=== PATIENT | male | born 1955 | race Caucasian/White ===

== ENCOUNTER 2020-04-04 09:53 | Inpatient (IN) | payer BC, OTHER ==
[~2020-04-04] VITALS: Ht 167.6 cm; Wt 76.2 kg
[2020-04-04] VITALS (12 sets, daily range): BP systolic 115–135; BP diastolic 62–84
[2020-04-04 10:18] LABS: ABSOLUTE NEUTROPHILS 2.5 thou/uL (1.4-8.2); BASOPHILS 0.3 % (0.0-2.0); EOSINOPHILS 1.7 % (0.0-3.0); HEMATOCRIT 46.9 % (42.0-52.0); HEMOGLOBIN 15.6 gm/dL (14.0-18.0); LYMPHOCYTES 41.3 % (24.0-44.0); MCH 30.4 pg (26.0-34.0); MCHC 33.2 g/dL (28.0-37.0); MCV 91.5 fL (80.0-100.0); MONOCYTES 14.2 % (1.0-8.0); PLATELET COUNT 239 thou/uL (150-400); POLYS 42.5 % (36.0-66.0); RBC 5.13 mil/uL (4.50-6.00); RDW 12.8 % (10.5-14.5)
[2020-04-04 10:22] LABS: ANION GAP 14 mmol/L (7-16); BUN 15 mg/dL (7-18); CALCIUM 9.3 mg/dL (8.5-10.1); CHLORIDE 101 mmol/L (98-107); CO2 23 mmol/L (21-32); CREATININE 1.6 mg/dL (0.7-1.3); GLUCOSE 119 mg/dL (74-106); POTASSIUM 3.3 mmol/L (3.5-5.1); SODIUM 138 mmol/L (136-145)
[2020-04-04 10:33] LABS: ALBUMIN 3.7 g/dL (3.4-5.0); DIRECT BILIRUBIN < 0.1 mg/dL (<0.1-0.2); SGOT 21 U/L (15-37); SGPT 34 U/L (30-65); TOTAL BILIRUBIN 0.4 mg/dL (0.2-1.0); TOTAL PROTEIN 6.6 g/dL (6.4-8.2); TROPONIN-I <0.06 ng/mL (<0.06)
--- NOTE | 2020-04-04 12:19 | 2DMMODE ---
[facility] Shane [employer] [facility] [place] [address] 2 D/M-MODE ECHOCARDIOGRAM Name: JUDITH TOVAR Room #: 160-1 ADM IN M.R.#: [id number] Admission: 04/04/20 Attend Phys: Dequan José MD Discharge: Date of : 59 Report #: [id number] THIS REPORT FOR: cc: FAM - Family physician unknown FAM - Family physician unknown Dante Marcial MD [facility] ~ APPROVED REPORT Study performed: 04/04/2020 11:33:56 EXAM: Comprehensive 2D, Doppler, and color-flow Echocardiogram Patient Location: CV Holding Status: routine BSA: 1.81 HR: 79 bpm BP: 127/62 mmHg Rhythm: RBBB Other Information Study Quality: Adequate Technically limited study due to pectus, flat on back. Indications STEMI s/p cardiac stents. Echo Enhancing Agent Indication: Endocardial border delineation Agent(s) / Amount(s) Used: Optison 4 cc 2D Dimensions RVDd: 34.58 mm IVSd: 10.55 (7-11mm) LVOT Diam: 19.93 (18-24mm) LVDd: 46.91 mm PWd: 8.85 (7-11mm) LVDs: 34.14 (25-40mm) Left Atrium: 31.46 (27-40mm) Aortic Root: 24.74 mm Volumes Left Atrial Volume (Systole) Single Plane 4CH: 33.20 mL Single Plane 2CH: 42.87 mL LA ESV Index: 24.00 mL/m2 [facility] [address] [place] [address] 2 D/M-MODE ECHOCARDIOGRAM Name: JUDITH TOVAR Room #: 160-1 ADM IN M.R.#: [id number] Admission: 04/04/20 Attend Phys: Dequna José, Discharge: Date of : 59 Report #: [id number] Aortic Valve AoV Peak Fabian.: 1.21 m/s AO Peak Gr.: 5.90 mmHg LVOT Max P.82 mmHg LVOT Max V: 0.98 m/s YEVGENIY Vmax: 2.51 cm2 Mitral Valve E/A Ratio: 0.8 MV Decel. Time: 181.89 ms MV E Max Fabian.: 0.53 m/s MV A Fabian.: 0.68 m/s MV PHT: 52.75 ms IVRT: 103.81 ms Pulmonary Valve PV Peak Fabian.: 0.77 m/s PV Peak Gr.: 2.40 mmHg Tricuspid Valve RAP Estimate: 5.00 mmHg Left Ventricle The left ventricle is normal size. There is normal left ventricular wall thickness. Left ventricular systolic function is normal. LVEF is 50-55%. Mild diastolic dysfunction is present (impaired relaxation pattern). Right Ventricle The right ventricle is normal size. The right ventricular systolic function is normal. Atria The left atrium size is normal. The right atrium size is normal. Aortic Valve The aortic valve is normal in structure. No aortic regurgitation is present. There is no aortic valvular stenosis. Mitral Valve The mitral valve is normal in structure. There is no mitral valve regurgitation noted. No evidence of mitral valve stenosis. Tricuspid Valve The tricuspid valve is normal in structure. There is no tricuspid valve regurgitation noted. Unable to assess PA pressure. [facility] [address] [place] [address] 2 D/M-MODE ECHOCARDIOGRAM Name: JUDITH TOVAR Room #: [facility] ADM IN M.R.#: [id number] Admission: 04/04/20 Attend Phys: Dequan José, Discharge: Date of : 59 Report #: [id number] Pulmonic Valve Pulmonic valve is not well visualized. Trace pulmonic regurgitation. Great Vessels The aortic root is normal in size. Ascending aorta is not well visualized. IVC is normal in size and collapses >50% with inspiration. Pericardium There is no pericardial effusion. <Conclusion> Normal left ventricular size/wall thickness Ejection fraction 55%, mild distal anteroapical hypokinesis Grade 1 diastolic dysfunction Normal right ventricular size/function Normal atrial size Color-flow Doppler study was performed of the aortic/mitral/tricuspid/pulmonary valve Normal aortic/mitral valve structure and function No evidence of tricuspid valve insufficiency No pericardial effusion <ELECTRONICALLY SIGNED> By: Dante Marcial MD, FACC 04/04/209 18 18 Dante Marcial MD, [facility] /INF
--- NOTE | 2020-04-04 13:12 | NUR ---
ASSUMED PT CARE FROM NURSE ASSESSOR. PT ALERT AND ORIENTED X3. PT DENIES PAIN AT THIS TIME. ADMISSION ASSESSMENT COMPLETE. VSS. WILL CONTINUE TO MONITOR.
--- NOTE | 2020-04-04 14:33 | CATHLAB ---
[facility] [place] [address] INVASIVE PROCEDURE REPORT Name: JUDITH TOVAR Room #: 214-P ADM IN M.R.#: [id number] Admission: 04/04/20 Attend Phys: Dequan José MD Discharge: Date of : 59 Report #: [id number] THIS REPORT FOR: cc: FAM - Family physician unknown FAM - Family physician unknown Chapin Ross MD ~ APPROVED REPORT Study performed: 04/04/2020 09:54:53 Patient Details Patient Status: ED Room #: The patient is a 64 year-old male Event Personnel Chapin Ross Window Repairer, Marilu Meyers RN RN, Zaida Carey RTR, Hugh Lara Roberta Monitor, Antwon Temple RN senior quality manager Performed Art Access - R femoral artery* Left Heart Cath w/or w/o Coronaries [id number] [facility] CHA Place w/wo Plasty Single LAD 388297 Hemostasis w/ Mynx 08620 Initial Mod Sed Same Phys/QHP Gr5y 308100 08414 Mod Sed Same Phys/QHP Ea 699829 Indication STEMI (>0 to less than or equal to 6 hours), Dyspnea, Chest pain Risk Factors Hypercholesterolemia Procedure Narrative The Right Groin^ was infiltrated with 1% Lidocaine subcutaneous anesthesia. A PINNACLE 6FR Sheath #[id number] sheath was inserted into the RFA^. Coronary angiography was performed using coronary diagnostic catheters. The right coronary system was accessed and visualized with a JR4 catheter. The left coronary system was accessed and visualized with a XB 3.5 catheter. The left ventricle was accessed and visualized with a ANGLE PIG catheter. The patient tolerated the procedure well and there were no complications associated with the procedure. There was no hematoma. Intraoperative Conscious Sedation [facility] [address] [place] [address] INVASIVE PROCEDURE REPORT Name: JUDITH TOVAR Room #: 214-P [facility] IN .R.#: [id number] Admission: 04/04/20 Attend Phys: Dequan José, Discharge: Date of : 59 Report #: [id number] Sedation start time: 1013 Case end Time: 1115 Fentanyl 50 mcg Versed 1 mg Fluoro Time: 13.9 minutes Dose: 2265 mGy Contrast Type and Amount: Visipaque 385 ml Coronary Angiography The patient's coronary anatomy is right dominant. Diagnostic Cath Left Main The left main artery is a large-caliber vessel, patent with no flow-limiting lesions. LAD The LAD is a moderate-sized caliber vessel with a total occlusion in the proximal segment. There is a severe occlusion in the midsegment, at the bifurcation of the second diagonal artery. Diagonal 1 This is a small to moderate-sized caliber vessel with a borderline stenosis at the ostium, recommend medical therapy. Diagonal 2 There is a moderate-sized caliber vessel, with no flow-limiting lesions. Circumflex There is mild disease in the proximal segment. OM1 This is a small to moderate-sized caliber vessel, with a mild stenosis at the ostium. OM2 This is a moderate-sized caliber vessel, patent with no flow-limiting lesions. Right Coronary The RCA is a moderate-sized caliber vessel, dominant. There is a mild to moderate obstruction in the proximal segment, 30 to 40%. R PDA This is a moderate-sized caliber vessel, patent with no flow-limiting lesions. RPLV This is a moderate-sized caliber vessel, patent with no flow-limiting lesions. Left Ventriculography The left ventricle is normal in size with Diminished contractility. The left ventricular ejection fraction is estimated to be 45-50%. There is mild hypokinesis of the distal anteroapical segment. IVUS Intravascular Ultrasound was performed on the mid left anterior descending artery segment vessel. Fractional Flow [place] was performed on the 80 vessel. [facility] [address] [address] INVASIVE PROCEDURE REPORT Name: JUDITH TOVAR Room #: 214-P [facility] IN M.R.#: [id number] Admission: 04/04/20 Attend Phys: Dequan José, Discharge: Date of : 59 Report #: [id number] IVUS Findings TREK FL RX 2.5 X 8 #[id number] Hemodynamics The aortic pressure is 129/72 mmHg with a mean of 95 mmHg. The left ventricular pressure is 128/5 mmHg with a mean of mmHg. The left ventricular end diastolic pressure is 23 mmHg. PCI Technique Lesion Percutaneous coronary intervention was performed on the proximal left anterior descending artery segment. The lesion stenosis prior to intervention was 100% with PRINCESS 0 flow. A VISTA 6FR XB 3.5 #[id number] Guide Catheter was used to engage the ostium. A Luge Wire .014 x 182CM #[id number] Interventional Guidewire was used to cross the lesion. BALLOON DILATION A Balloon catheter Euphora RX 2.5 x 12 #[id number] was inserted and inflated up to 8.00atm for 11seconds. STENT DEPLOYMENT A stent RESOLUTE YAHAIRA RX 2.75 X15 #[id number] was inserted and inflated up to 12.00atm for 25seconds. POST STENT DEPLOYMENT BALLOON DILATION A Balloon catheter TREK NC RX 3.0 X 12 #[id number] was inserted and inflated up to 16.00atm for 19seconds. Final angiography reveals 0 % stenosis with PRINCESS 3 flow. PCI Technique Lesion Percutaneous coronary intervention was performed on the mid left anterior descending artery segment. The lesion stenosis prior to intervention was 80% with PRINCESS flow. BALLOON DILATION A Balloon catheter TREK NC RX 2.5 X 8 #[id number] was inserted and inflated up to 12atm for 21seconds. STENT DEPLOYMENT A stent TREK NC RX 2.75 X 12 #[id number] was inserted and inflated up to 12atm for 18seconds. POST STENT DEPLOYMENT BALLOON DILATION A Balloon catheter TREK NC RX 2.75 X 12 #[id number] was inserted and [facility] [address] [place] [address] INVASIVE PROCEDURE REPORT Name: JUDITH TOVAR Room #: 214-P ADM IN M.R.#: [id number] Admission: 04/04/20 Attend Phys: Dequan José, Discharge: Date of : 59 Report #: [id number] inflated up to 16atm for 21seconds. Final angiography reveals 0 % stenosis with PRINCESS 3 flow. Conclusion 1. Successful insertion of a drug-eluting stent into the total occlusion in the proximal LAD segment. 2. Successful insertion of a drug-eluting stent into the severe stenosis in the mid segment of the LAD. 3. There is a borderline stenosis at the ostium of the first diagonal artery, recommend medical therapy. 4. There is a mild to moderate occlusion in the proximal segment of the dominant RCA. 5. There is mild LV dysfunction. 6. Recommend dual antiplatelet therapy and aggressive risk factor management. <ELECTRONICALLY SIGNED> By: Chapin Ross MD 04/04/20 1433 143 143 Chapin Ross MD /INF
[2020-04-04 15:52] LABS: FOLIC ACID 43.1 ng/mL (8.6-58.9)
[2020-04-05 03:21] VITALS: BP 122/64
[2020-04-05 04:06] LABS: GLYCOHEMOGLOBIN (HGB A1C) 5.6 % (4.8-5.6)
--- NOTE | 2020-04-05 04:22 | NUR ---
Pt alert and oriented s/p caridac cath through right groin,C/D/I. No hematoma. Noted minimal blood stain on the gauze, mapped with marker, no changes or signs of continous bleeding. Reports Neck pain, rating 8/10. Hydrocodone x 1 , pain alleviated. NO further concerns. Pt anticipate to DC this am.
[2020-04-05 05:21] LABS: ABSOLUTE NEUTROPHILS 6.8 thou/uL (1.4-8.2); BASOPHILS 0.1 % (0.0-2.0); EOSINOPHILS 0.7 % (0.0-3.0); HEMATOCRIT 42.8 % (42.0-52.0); HEMOGLOBIN 14.2 gm/dL (14.0-18.0); LYMPHOCYTES 13.8 % (24.0-44.0); MCH 30.7 pg (26.0-34.0); MCHC 33.2 g/dL (28.0-37.0); MCV 92.5 fL (80.0-100.0); MONOCYTES 13.9 % (1.0-8.0); PLATELET COUNT 165 thou/uL (150-400); POLYS 71.5 % (36.0-66.0); RBC 4.62 mil/uL (4.50-6.00); RDW 12.6 % (10.5-14.5); WBC 9.5 thou/uL (4.0-11.0)
[2020-04-05 05:52] LABS: ALBUMIN 3.3 g/dL (3.4-5.0); ANION GAP 9 mmol/L (7-16); BUN 12 mg/dL (7-18); CALCIUM 8.7 mg/dL (8.5-10.1); CHLORIDE 103 mmol/L (98-107); CHOLESTEROL 203 mg/dL (<200); CO2 27 mmol/L (21-32); CREATININE 1.3 mg/dL (0.7-1.3); GLUCOSE 109 mg/dL (74-106); HDL CHOLESTEROL 46 mg/dL (>40); LDL CHOLESTEROL 142 mg/dL (<100); MAGNESIUM 2.3 mg/dL (1.8-2.4); POTASSIUM 3.4 mmol/L (3.5-5.1); SGOT 362 U/L (15-37); SGPT 80 U/L (30-65); SODIUM 139 mmol/L (136-145); TC:HDL 4.4 Ratio (Not establshd); TOTAL BILIRUBIN 0.4 mg/dL (0.2-1.0); TOTAL PROTEIN 5.9 g/dL (6.4-8.2); TRIGLYCERIDE 77 mg/dL (<150); VLDL 15 mg/dL (<40)
[2020-04-05 06:18] LABS: SERUM ASSESSMENT Clear; TROPONIN-I 85.74 ng/mL (<0.06)
--- NOTE | 2020-04-05 07:05 | EKG ---
[address] [address] ELECTROCARDIOGRAM REPORT Name: JUDITH TOVAR Room #: 214-P ADM IN M.R.#: [id number] Admission: 04/04/20 Attend Phys: Dequan José MD Discharge: Date of : 59 Report #: [id number] [facility] ED Test Date: 2020-04-04 Test Time: 09:54:08 Pat Name: JUDITH TOVAR Department: Room: 214 Gender: M Conference Director: jason : 1955 Requested By: Sandy Dominguez Order Number: [id number] MD: Dante Marcial Measurements Intervals [place] Rate: 78 P: 72 [place]: 129 QRS: -68 QRSD: 147 T: -6 QT: 421 QTc: 480 Interpretive Statements Sinus rhythm Probable left atrial enlargement Right bundle branch block Left ventricular hypertrophy Anterolateral infarct, acute (LAD) No previous ECG available for comparison Electronically Signed On 04-05-2020 7:05:22 FREELANCE PROGRAMMER/APP DEVELOPER by Dante Marcial [email or web address] <ELECTRONICALLY SIGNED> By: Dante Marcial MD, [facility] 04/05/20 0705 3 Dante Marcial MD, FACC /EPI
--- NOTE | 2020-04-05 07:06 | EKG ---
[address] [address] ELECTROCARDIOGRAM REPORT Name: JUDITH TOVAR Room #: 214-P ADM IN M.R.#: [id number] Admission: 04/04/20 Attend Phys: Dequan José MD Discharge: Date of : 59 Report #: [id number] [facility] Test Date: 2020-04-04 Test Time: 13:22:48 Pat Name: JUDITH TOVAR Department: Room: 214 Gender: M Jewelry Maker: JESSICA : 1955 Requested By: Chapin Ross Order Number: [id number] MD: Dante Marcial Measurements Intervals [place] Rate: 86 P: 66 OR: 155 QRS: -91 QRSD: 135 T: 5 QT: 394 QTc: 472 Interpretive Statements Sinus rhythm Probable left atrial enlargement Right bundle branch block Anterior infarct, old Borderline ST elevation, lateral leads Compared to ECG 04/04/2020 09:54:08 ST (T wave) deviation now present Left ventricular hypertrophy no longer present Myocardial infarct finding still present Electronically Signed On 04-05-2020 7:05:59 ROTARY DRIER OPERATOR by Dante Marcial [email or web address] <ELECTRONICALLY SIGNED> By: Dante Marcial MD, FAC 04/05/20 0705 1322 1322 Dante Marcial MD, [facility] /EPI
--- NOTE | 2020-04-05 07:27 | EKG ---
[place] [address] [place] [address] ELECTROCARDIOGRAM REPORT Name: JUDITH TOVAR Room #: 214-P ADM IN M.R.#: [id number] Admission: 04/04/20 Attend Phys: Dequan José MD Discharge: Date of : 59 Report #: [id number] [facility] Test Date: 2020-04-05 Test Time: 07:13:56 Pat Name: JUDITH TOVAR Department: Room: 214 P Gender: M Sales Professional: JESSICA : 1955 Requested By: Chapin Ross Order Number: [id number] MD: Norris Iraheta Measurements Intervals [place] Rate: 71 P: 81 [place]: 144 QRS: -73 QRSD: 132 T: 49 QT: 401 QTc: 436 Interpretive Statements Sinus rhythm Right bundle branch block Anteroseptal infarct, age indeterminate Compared to ECG 04/04/2020 13:22:48 Anterior T wave abnormality is more pronounced Electronically Signed On 04-05-2020 7:27:41 INSPECTOR FINAL ASSEMBLY ELECTRICAL by Norris Iraheta [email or web address] <ELECTRONICALLY SIGNED> By: Norris Iraheta MD, [facility] [id number] 2 2 Norris Iraheta MD, [facility] /EPI
[2020-04-05 07:30] VITALS: BP 120/69
[2020-04-05] MEDS ORDERED: EFFIENT10 MG PO (09:11)
[2020-04-05] MEDS ORDERED: METOPROLOL TART25 MG PO (09:11)
[2020-04-05] MEDS ORDERED: ASPIRIN325 PO (09:11)
[2020-04-05] MEDS ORDERED: LIPITOR40 MG PO (09:11)
[2020-04-05 12:10] VITALS: BP 116/68
--- NOTE | 2020-04-05 15:45 | NUR ---
Chart reviewed and case discussed with the care team. Pt had emergent cath with two stents yesterday. Doing well with anticipated dc to home tomorrow. Pt has extended family member for support and a ride home. He has health insurance in place for f/u care with cardiology and to fill any scripts. He will need to establish a pcp as he has not seen a doctor in many years. The pt is up ad neymar and indep with gait and adl's. No cm interventions indicated.
[2020-04-05 15:48] VITALS: BP 116/68
[2020-04-05 16:15] VITALS: BP 126/68
--- NOTE | 2020-04-05 17:43 | NUR ---
RECEIVED PT'S CARE AROUND 0710; PT. ON BED; AOX4; DURING AM ASSESSMENT NO C/O PAIN; AM MEDICATIONS GIVEN; EDUCATED ABOUT MEASURING OUTPUT; ST. UNDERSTANDING; SR ON THE MONITOR; EDUCATED ABOUT POC AND GOALS THROUGH THE DAY; ST. UNDERSTANDING; PT. ABLE TO AMBULATE AROUND THE UNIT SEVERAL TIMES THROUGH THE DAY; NO C/O PAIN; ASSESSMENT CHARGED; FOLLOWING POC; WILL PASS ON REPORT;
[2020-04-05 20:45] VITALS: BP 116/69
[2020-04-06 00:01] VITALS: BP 116/69
[2020-04-06 04:45] VITALS: BP 111/73
--- NOTE | 2020-04-06 06:25 | NUR ---
Assumed pt care at change of shift, upadlib, chest pain or sob, assessments as charted, right groin site with no hematoma, sr/bbb on the monitor, no distress or events noted this shift, plan to discharge home today
[2020-04-06 08:00] VITALS: BP 108/59
[2020-04-06 08:05] VITALS: BP 108/59
[2020-04-06 11:47] VITALS: BP 116/68
[2020-04-06 12:00] VITALS: BP 109/66
--- NOTE | 2020-04-06 12:24 | NUR ---
PT CARE ASSUMED AT 0700. ASSESSMENTS CHARTED. MEDICATIONS CHARTED. LAC IV. DAY 2 - RT GROIN, MYNX; C/D/I. UP AD ARACELI. SINUS RHYTHM BBB. PT DISCHARGE TO HOME. DISCHARGE PAPERWORK SIGNED. TELEMETRY D/C'D. IV D/C'D.
== END 2020-04-06 12:48 | disposition home or self-care (01) | DRG 247 ==
LOC: ER 09:53 → 2N 11:10 → TBACV 11:10 → 2N 12:20
PROVIDERS: Emergency Medicine; Nurse Practitioner; ADMIT Internal Medicine; ATTEND Internal Medicine
PROC: 4A033BC Measurement of Arterial Pressure, Coronary, Percutaneous Approach (ICD-10-PCS; principal; 2020-04-04)
PROC: B240ZZ3 Ultrasonography of Single Coronary Artery, Intravascular (ICD-10-PCS; principal; 2020-04-04)
PROC: B211YZZ Fluoroscopy of Multiple Coronary Arteries using Other Contrast (ICD-10-PCS; principal; 2020-04-04)
PROC: 027035Z Dilation of Coronary Artery, One Artery with Two Drug-eluting Intraluminal Devices, Percutaneous Approach (ICD-10-PCS; principal; 2020-04-04)
PROC: 4A023N7 Measurement of Cardiac Sampling and Pressure, Left Heart, Percutaneous Approach (ICD-10-PCS; principal; 2020-04-04)
PROC: B215YZZ Fluoroscopy of Left Heart using Other Contrast (ICD-10-PCS; principal; 2020-04-04)
DX: I21.3 ST elevation (STEMI) myocardial infarction of unspecified site (principal); N17.9 Acute kidney failure, unspecified; E87.6 Hypokalemia; E78.5 Hyperlipidemia, unspecified; E78.00 Pure hypercholesterolemia, unspecified; I10 Essential (primary) hypertension; I25.10 Atherosclerotic heart disease of native coronary artery without angina pectoris
CPT/HCPCS: 10081

== ENCOUNTER → 2021-04-02 | Outpatient (CLI) | payer BC, OTHER ==
[~2021-04-02] MED LIST: ASPIRIN325 PO; EFFIENT10 MG PO; LIPITOR40 MG PO; METOPROLOL TART25 MG PO
== END ==
LOC: SJCVCIMAG 07:33
PROVIDERS: ATTEND Internal Medicine Cardiovascular Disease
DX: I35.8 Other nonrheumatic aortic valve disorders (principal); I25.10 Atherosclerotic heart disease of native coronary artery without angina pectoris; Z79.82 Long term (current) use of aspirin; Z79.899 Other long term (current) drug therapy